=== PATIENT | female | born 1965 | race Caucasian/White ===

== ENCOUNTER → 2022-03-19 09:48 | Outpatient (CLI) | payer OTHER, SELFPAY ==
--- NOTE | ~2022-03-19 | CT_ITS ---
EXAMINATION: CT abdomen pelvis w con DATE: 03/19/2022 10:15 INDICATION: Left upper quadrant and right lower quadrant abdominal pain TECHNIQUE: Computed tomography (CT) of the abdomen and pelvis was performed with 100 CC Omnipaque 350 intravenous contrast. Automated exposure control and iterative reconstruction technique were employe d. Exam dose: 317.19 mGy-cm total exam DLP. COMPARISON: None. FINDINGS: There are multiple scattered hepatic cysts measuring up to 10 mm approximate maximal dimens ion. Normal splenic size. No pancreatic mass lesion or calcification or ductal dilatation. The gallbladder is present. No gallbladder wall thickening. No bile duct dilatation. Normal morphology of the adrenal glands.. No renal mass lesion or urinary tract calculus or hydroureteronephrosis. Retroverted uterus. The urinary bladder, uterus and adnexal areas are otherwise unremarkable. Normal caliber of the abdominal aorta. No intraperitoneal or retroperitoneal or pelvic mass lesion or adenopathy or ascites is detected. Normal appendix. No bowel obstruction, bowel wall thickening, pneumatosis or intraperitoneal free air is detected. Included skeletal structures are unremarkable. IMPRESSION: Hepatic cysts Normal appendix Reviewed, dictated and finalized at [facility]. Reviewed, dictated and finalized at [facility].
== END ==
PROVIDERS: PCP Internal Medicine Infectious Disease; Visit Provider Internal Medicine Infectious Disease
DX: D64.9 Anemia, unspecified (principal); R10.12 Left upper quadrant pain; R10.31 Right lower quadrant pain; D50.9 Iron deficiency anemia, unspecified; K76.89 Other specified diseases of liver
CPT/HCPCS: 74177; Q9967